=== PATIENT | male | born 1945 | race Caucasian/White ===

== ENCOUNTER 2018-08-02 05:46 | Day surgery (SDC) | payer OTHER ==
[2018-08-02] MEDS ORDERED: LIDOCAINE 1%/EPI 30 ML INJ (06:51)
[2018-08-02] MEDS ORDERED: LIDOCAINE 4% (MPF) 5 ML INJ OPER (07:00)
[2018-08-02] MEDS: MOXIFLOXACIN 0.5% 3 ML OPH OPER (07:05)
[2018-08-02] MEDS: PHENYLephrine 10% 5 ML OPH OPER (07:06)
[2018-08-02] MEDS: TROPICAMIDE 1% 15 ML OPH OPER (07:06)
[2018-08-02] MEDS: DICLOFENAC 0.1% 2.5 ML OPH OPER (07:06)
[2018-08-02] MEDS ORDERED: ONDANSETRON 4 MG INJ IV (07:30)
[2018-08-02] MEDS ORDERED: LABETALOL HCL 20MG INJ IV (07:30)
[2018-08-02] MEDS ORDERED: FENTAnyl 50 MCG/ML VIAL IV (07:30)
[2018-08-02] MEDS ORDERED: FENTAnyl 50 MCG/ML VIAL (07:41)
[2018-08-02] MEDS ORDERED: MIDAZOLAM 1 MG/ML 2 ML INJ (07:41)
[2018-08-02] MEDS: EPINEPHrine 1 MG INJ (07:53)
[2018-08-02] MEDS: LIDOCAINE 1.5%/EPI MPF (SDV) 30 ML VIAL (07:54)
[2018-08-02] MEDS: TETRACAINE 0.5% 4 ML OPH (07:54)
[2018-08-02] MEDS: TOBRAMYCIN/DEXAMETH 3.5 GM OPH OINT (07:55)
[2018-08-02] MEDS: DEXAMETHASONE 4 MG/ML 1 ML INJ (07:55)
[2018-08-02] MEDS: TIMOLOL 0.5% 5 ML OPH (07:55)
[2018-08-02] MEDS: CARBACHOL 0.01% 1.5 ML OPH INJ (07:55)
[2018-08-02] MEDS ORDERED: ONDANSETRON 4 MG INJ (07:56)
[2018-08-02] MEDS ORDERED: METOCLOPRAMIDE 10 MG INJ (07:56)
[2018-08-02] MEDS: ACETAZOLAMIDE 250 MG TAB PO (09:16)
== END 2018-08-02 10:57 | disposition home or self-care (01) ==
LOC: SDS 05:46
DX: H26.8 Other specified cataract (principal); H21.81 Floppy iris syndrome; I10 Essential (primary) hypertension; E78.5 Hyperlipidemia, unspecified; E11.9 Type 2 diabetes mellitus without complications
CPT/HCPCS: 66984; 71045; 82962